=== PATIENT | female | born 1935 | race Caucasian/White ===

== ENCOUNTER → 2017-05-10 | Outpatient (CLI) | payer MEDICARE ==
[~2017-05-10] MED LIST: ALE10 PO; ALE70 PO; ALEN70TA43 PO; ANTI1CAP PO; ASPI-1471 PO; BENZ200C15 PO; CALC-649 PO; CALC-901 PO; DIPH0.5D12 IM; FOSAMAX; GLUC-198 PO; HYDR-385 PO; I CAPS; LOR5 PO; MOM PO; MULT-1319 PO; ONDA-2 PO; OXYC-854 PO; OXYGENHOME INH; PANT40TA65 PO; PER PO; POLY17PO25 PO; SIMV-42 PO; SIMV-49 PO
--- NOTE | 2017-05-10 09:53 | RADIOLOGY IMAGING REPORT ---
[place]AC[place] [facility] [place]IENT NAME: Marissa Pelayo : 1935 MR: [id number] V: [id number] EXAM DATE: ORDERING PHYSICIAN: CLARIBEL LEE TECHNOLOGIST: Location: [facility] - [place] Patient: Marissa Pelayo : 1935 Visit/Account:[id number] Date of Sevice: 05/10/2017 DEXA Scan Clinical history: Post artificial menopausal syndrome. Comparison: DEXA scan from 04/18/2015. LUMBAR SPINE: The bone mineral density (BMD) measured from L1-L4 correlates with a Z-score of 0.8 and a T-score of -0.9 which is Normal as defined by the World Health Organization. The corresponding risk of fracture in the lumbar spine is 1-2 times increased compared with a young adult reference population. This v alue has decrease by one % since the prior study. More than 5% change is considered significant. HIP: Bone mineral density (BMD) measured in the LEFT total hip region correlates with a Z-score 0.9 and a T-score of -1.2 which is osteopenia as defined by the World Health Organization. The corresponding r isk of fracture in the hip is 2-3 times increased compared to a young adult reference population. Thi s value has decreased by 6.6 % since the prior study. More than 5% change is considered significant. T score left femoral neck -1.8 Bone mineral density (BMD) measured in the Femoral Neck region measures 0.784 g/cm?. IMPRESSION: 1. Lumbar spine: Normal. There has been 1% decrease in the bone mineral density since the previous exam. 2. Left Total Hip: Osteopenia. There has been 6.6% decrease in the bone mineral density since the p revious exam. 3. Femoral Neck: Bone Mineral Density is 0.784 g/cm? The next DEXA scan of this patient should include the following sites: L1-L4 and the left hip. FRAX? WHO Fracture Risk Assessment Tool link: <http://www.shef.ac.uk/FRAX/tool.jsp?locationValue=9> PLEASE NOTE: 1) The World Health Organization defines low BMD as follows: T-score Normal > -1 Osteopenia < -1 and > -2.5 Osteoporosis < -2.5 without fractures Established osteoporosis < -2.5 with fractures 2) In general, you may wish to consider: Diagnosis Treatment Follow-up DEXA Normal BMD Prevention 2-3 years Osteopenia Prevention/therapy 1-2 years Osteoporosis Therapy Yearly 3) Fracture risk estimated from the T-score is more accurate for vertebral fractures (often spontane ous) than for hip fractures. Report Dictated By: Kylah Escobar MD at 05/10/2017 9:47 AM Report E-Signed By: Kylah Escobar MD at 05/10/2017 9:49 AM WSN:[email or web address]
--- NOTE | 2017-05-13 09:42 | RADIOLOGY IMAGING REPORT ---
FACILITY: [facility] - [place] PATIENT NAME: SUSI GODINEZ : [id number] MR: [id number] V: [id number] EXAM DATE: [id number] ORDERING PHYSICIAN: CLARIBEL LEE TECHNOLOGIST: Marlen Shelton PROCEDURE:BILATERAL DIGITAL SCREENING MAMMOGRAM WITH CAD ASSISTED INTERPRETATION AND 3D BREAST TOMOSYNTHESIS. COMPARISON:Prior mammograms dated 04/30/16, 04/19/15, 04/29/14, 04/17/13, 04/16/12 and 04/12/11. INDICATIONS:SCREENING FINDINGS: A small amount of fibroglandular tissue is seen throughout the breasts. The parenchymal pattern has remained stable when allowing for difference in mammographic technique and patient positioning. There is no evidence of malignant appearing mass, malignant appearing calcification or other secondary sign of malignancy in either breast. DIAGNOSTIC CATEGORY 1--NEGATIVE. RECOMMENDATIONS: ROUTINE MAMMOGRAM AND CLINICAL EVALUATION. IMPRESSION: Bi-RADS 1: No significant abnormality is seen. Images were reviewed with R2CAD and 3D breast tomosynthesis. Dictated by: Kylah Escobar M.D. on 05/10/2017 at 15:03 Transcribed by: CHANG on 05/12/2017 at 14:53 Approved by: Kylah Escobar M.D. on 05/13/2017 at 9:41 [facility]
== END ==
LOC: MAMO 01:42
PROVIDERS: ATTEND Internal Medicine
DX: Z13.820 Encounter for screening for osteoporosis (principal); Z12.31 Encounter for screening mammogram for malignant neoplasm of breast; M85.88 Other specified disorders of bone density and structure, other site; N95.8 Other specified menopausal and perimenopausal disorders
CPT/HCPCS: 77063; 77067; 77080

== ENCOUNTER → 2018-05-16 | Outpatient (CLI) | payer MEDICARE ==
[~2018-05-16] MED LIST changes: +PNEU0.5D3 IM
--- NOTE | 2018-05-16 10:09 | RADIOLOGY IMAGING REPORT ---
FACILITY: [facility] PATIENT NAME: SUSI GODINEZ : [id number] MR: [id number] V: [id number] EXAM DATE: ORDERING PHYSICIAN: CLARIBEL LEE TECHNOLOGIST: Kajal Rowe PROCEDURE:BILATERAL DIGITAL SCREENING MAMMOGRAM WITH CAD ASSISTED INTERPRETATION & 3D TOMOSYNTHESIS COMPARISON:Prior mammograms 05/10/17, 04/30/16, 04/18/15, 04/29/14, 04/17/13, 04/16/12. INDICATIONS:SCREENING FINDINGS: Scattered fibroglandular densities are seen throughout the breasts. The parenchymal pattern has remained stable allowing for difference in mammographic technique & patient positioning. DIAGNOSTIC CATEGORY 1--NEGATIVE. RECOMMENDATIONS: ROUTINE MAMMOGRAM AND CLINICAL EVALUATION. IMPRESSION: BIRADS 1: Negative. No significant abnormality is seen. Dictated by: Kylah Escobar M.D. on 05/16/2018 at 8:59 Transcribed by: DALIA on 05/16/2018 at 9:35 Approved by: Kylah Escobar M.D. on 05/16/2018 at 10:08 [facility]
== END ==
LOC: MAMO 00:47
PROVIDERS: ATTEND Internal Medicine
DX: Z12.31 Encounter for screening mammogram for malignant neoplasm of breast (principal)
CPT/HCPCS: 77063; 77067

== ENCOUNTER → 2018-06-12 | Outpatient (CLI) | payer MEDICARE ==
[2018-06-12 15:24] LABS: PLATELET COUNT, AUTOMATED 325 K/uL (150-450)
--- NOTE | 2018-06-12 15:56 | RADIOLOGY IMAGING REPORT ---
FACILITY: [facility] PATIENT NAME: Marissa Pelayo : 1935 MR: [id number] V: [id number] EXAM DATE: ORDERING PHYSICIAN: QUIQUE KENNEDY TECHNOLOGIST: Location: [facility] Patient: Marissa Pelayo : 1935 Visit/Account:[id number] Date of Sevice: 06/12/2018 Exam type: ACUTE ABDOMEN SERIES 3 VIEW History: Constipation Comparison: Two view chest February 15, 2014. Findings: Supine and upright views the abdomen reveal a moderate amount of fecal material throughout colon whic h can be seen with constipation. The bowel gas pattern is otherwise nonspecific. Incidentally noted is a very large hiatal hernia with air-fluid level. There is no free air beneath hemidiaphragms. T here is a dextro convex scoliosis lumbar spine with spondylotic changes. PA view the chest reveals no evidence of acute pulmonary consolidation pleural effusions or pulmonary edema. The cardiac swelling is normal in size. Postsurgical changes of the shoulders are present IMPRESSION: Moderate amount of fecal material seen throughout colon which can be seen with constipation Large hiatal hernia Results were called to QUIQUE KENNEDY at 06/12/2018 3:52 PM. Report Dictated By: Kylah Escobar MD at 06/12/2018 3:46 PM Report E-Signed By: Kylah Escobar MD at 06/12/2018 3:52 PM WSN:[email or web address]
== END ==
LOC: LAB 15:06
PROVIDERS: ATTEND Emergency Medicine
DX: K44.9 Diaphragmatic hernia without obstruction or gangrene (principal)
CPT/HCPCS: 36415; 74022; 82040; 82247; 82310; 82374; 82435; 82565; 82947; 84075; 84132; 84155; 84295; 84450; 84460; 84520; 85025

== ENCOUNTER 2018-08-01 00:27 | Day surgery (SDC) | payer MEDICARE ==
[~2018-08-01] VITALS: Ht 165.1 cm; Wt 66.2 kg
[2018-08-01] VITALS (7 sets, daily range): BP systolic 82–138; BP diastolic 47–94
[~2018-08-01 00:27] MED LIST changes: +CALC-852 PO; -DIPH0.5D12 IM; +DIPH0.5S2 IM; +VIT-9 PO
[2018-08-01] MEDS ORDERED: MIDAZOLAM 2 MG/2 ML VIAL IVP PRN (09:00)
[2018-08-01] MEDS ORDERED: LIDOCAINE/SOD BICARB 8.4% SYR ID ONE (09:00)
[2018-08-01] MEDS ORDERED: NORMOSOL R SOLN(*) 1000 ML BAG 1,000 ML IV PRN (09:00)
[2018-08-01] MEDS ORDERED: KETAMINE HCL 500 MG/10 ML VIAL ONE ×2 (10:51)
--- NOTE | 2018-08-01 11:33 | Short(Outpt) Discharge Summary ---
Discharge Summary Reason for Hosp/Final Diag: (1) Hiatal hernia Status: Chronic Hospital Course & Plan: pt presented for egd and colonoscopy. she tolerated the procedures well. she will be discharged home when criteria met. Departure Discharge to: Home Discharge Instructions Home Meds Active Scripts Simvastatin (SIMVASTATIN) 20 Mg Tablet, 1 TAB PO HS, #90 TAB 3 Refills Prov:CLARIBEL LEE MD 05/22/18 Reported Medications Calcium Carbonate/Vitamin D3 (CALCIUM + VITAMIN D TABLET) 1 Each Tablet, 1 EACH PO BID Calcium 600mg Vit D 400iu 07/30/18 Vit A/Vit C/Vit E/Zinc/Copper (PRESERVISION AREDS TABLET) 1 Each Tablet, 1 TAB PO BID 07/25/18 Oxygen (OXYGEN) Inha, 2 L INH HS, L 05/05/15 Glucosa Bueno 2KCL/Chondroitin Bueno (GLUCOSAMINE & CHONDROITIN CAP) 1 Each Capsule, 1 CAP PO BID 04/22/14 Aspirin (ASPIR 81) 81 Mg Tablet.dr, 1 TAB PO QDAY 02/05/14 Multivitamins (Multi-Vitamin) 1 Tab Tablet, 1 TAB PO DAILY 04/14/08 Discontinued Reported Medications Calcium Citrate/Vitamin D3 (CALCIUM CITRATE - VIT D CAPLET) 1 Each Tablet, 1 TAB PO BID 05/05/15 Antiox#10/Om3/Dha/Epa/Lut/Zeax (I-CAPS WITH LUTEIN-OMEGA 3 SFG) 1 Each Capsule, 1 CAP PO BID, CAPSULE 04/22/14 Discontinued Scripts Pantoprazole Sodium (PANTOPRAZOLE SODIUM) 40 Mg Tablet., 1 TAB PO QDAY, #90 TAB.SR 4 Refills Prov:CLARIBEL LEE MD 03/18/17 Diet: Regular Activity: As Tolerated Special Instructions: we will call you in 10 days with biopsy results. CARRIE VILLA Aug 01, 2018 11:33
--- NOTE | 2018-08-01 13:24 | NUR ---
1122- PT. RECEIVED FROM OR VIA STRETCHER WITH THE SIDERAILS UP. SBAR RECEIVED FROM DR. BELLO AND JACOBY FERNANDEZ. 1130- PT. HAS A LOT OF SECRETIONS SO TISSUES PROVIDED FOR NOSE BLOWING AND PT. MOUTH SUCTIONED. PT. STATES THAT SHE IS VERY LIGHTHEADED. 1140- PT. GIVEN HOT TEA AND APPLESAUCE. PT. RETURNED TO ROOM AIR. 1150- PT. STATES THAT LIGHTHEADEDNESS IS GETTING BETTER. 1215- PT. GIVEN PUDDING AND DAISY CRACKERS. 1235- BAR GIVEN TO AZUCENA FERNANDEZ.
== END 2018-08-01 13:40 | disposition home or self-care (01) ==
LOC: OR 00:27
PROVIDERS: ATTEND Surgery
DX: Z12.11 Encounter for screening for malignant neoplasm of colon (principal); K44.9 Diaphragmatic hernia without obstruction or gangrene; K25.9 Gastric ulcer, unspecified as acute or chronic, without hemorrhage or perforation; K20.9 Esophagitis, unspecified; K63.5 Polyp of colon
CPT/HCPCS: 88305; 88313

== ENCOUNTER → 2018-09-17 | Outpatient (CLI) | payer MEDICARE ==
[2018-09-17 13:56] LABS: PLATELET COUNT, AUTOMATED 306 K/uL (150-450)
== END ==
LOC: LAB 13:35
PROVIDERS: ATTEND Family Medicine
DX: Z01.818 Encounter for other preprocedural examination (principal); E78.00 Pure hypercholesterolemia, unspecified
CPT/HCPCS: 36415; 82040; 82247; 82310; 82374; 82435; 82565; 82947; 84075; 84132; 84155; 84295; 84450; 84460; 84520; 85025

== ENCOUNTER → 2018-09-22 | Outpatient (CLI) | payer MEDICARE ==
[~2018-09-22] MED LIST changes: +ASPI81TA94 PO
== END ==
LOC: US 01:09
PROVIDERS: ATTEND Family Medicine
DX: I07.1 Rheumatic tricuspid insufficiency (principal); I35.1 Nonrheumatic aortic (valve) insufficiency; I51.7 Cardiomegaly
CPT/HCPCS: 93306

== ENCOUNTER 2018-09-30 00:26 | Observation (INO) | payer MEDICARE ==
[~2018-09-30] VITALS: Ht 165.1 cm; Wt 65.8 kg
[2018-09-30] VITALS (14 sets, daily range): BP systolic 108–151; BP diastolic 53–89
[2018-09-30] MEDS: NORMOSOL R SOLN(*) 1000 ML BAG 1,000 ML IV PRN ×2 (06:03→13:00)
[2018-09-30] MEDS ORDERED: ceFAZolin(*) 2GM/D5W 50ML 50 ML IVPB ONE (06:30)
[2018-09-30] MEDS ORDERED: LIDOCAINE/SOD BICARB 8.4% SYR ID ONE (06:30)
[2018-09-30] MEDS ORDERED: MIDAZOLAM 2 MG/2 ML VIAL IVP PRN (06:30)
[2018-09-30] MEDS ORDERED: FAMOTIDINE 20 MG TAB PO ONE (06:30)
[2018-09-30] MEDS ORDERED: BUPIVACAINE/EPI 0.5% 50ML VIAL INFIL ONE (06:35)
[2018-09-30] MEDS ORDERED: fentaNYL CITR 100 MCG/2 ML AMP ONE ×2 (06:52→11:11)
[2018-09-30] MEDS ORDERED: DEXAMETHASONE SOD 4 MG/ML VIAL ONE (06:55)
[2018-09-30] MEDS ORDERED: LIDOCAINE MPF 1% 5 ML VIAL ONE (06:55)
[2018-09-30] MEDS ORDERED: ONDANSETRON 4 MG/2 ML VIAL ONE (06:55)
[2018-09-30] MEDS ORDERED: PROPOFOL EMUL(*) 10MG/ML 20 ML 20 ML ONE (06:55)
[2018-09-30] MEDS ORDERED: KETAMINE HCL 200 MG/20 ML MDV ONE (06:56)
[2018-09-30] MEDS ORDERED: SUGAMMADEX SOD 200 MG/2 ML SDV ONE (07:00)
[2018-09-30] MEDS ORDERED: PREGABALIN 75 MG CAPSULE PO ONE (07:11)
[2018-09-30] MEDS ORDERED: [UNRECOGNIZED DRUG - OTHER] ONE (07:30)
[2018-09-30] MEDS ORDERED: ACETAMINOPHEN(*)1000 MG/100 ML 100 ML IVPB ONE (07:30)
[2018-09-30] MEDS ORDERED: ePHEDrine 25 MG/5 ML DISP.SYR IVP ONE (07:31)
[2018-09-30] MEDS ORDERED: KETOROLAC 30 MG/ML VIAL ONE (10:00)
[2018-09-30] MEDS ORDERED: ESMOLOL 10 MG/ML 10ML SDV ONE (10:25)
--- NOTE | 2018-09-30 12:00 | NUR ---
Received patient from PACU at 1148, pt anxious and complaining of vertigo like symptoms, dizziness which worsens with movement and light sensitivity. lights turned off in room, shade lowered to allow for maximum darkness, towel also placed over pt eyes. pt vital signs stable, complaints of pain in left shoulder and abdomen, shoulder worse than abdomen, pt declines to rate pain on 0-10 scale, states "its not a 10" pt declines pain medication at this time. patient educated to let RN know if pain worses or if pt needs intervention for pain. pt agrees. patients spouse brought to room, pt repositioned on right side with pillow support.
--- NOTE | 2018-09-30 12:30 | NUR ---
THIS RN ASSESSED PATIENT AT THIS TIME, VITAL SIGNS STABLE, PATIENT RESTING WITH EYES CLOSED, STATES PAIN IS BETTER NOW, REQUESTS ICE CHIPS. DR VILLA NOTIFIED OF VERTIGO SYMPTOMS AND NEED FOR INPATIENT ORDERS. CLARIFIED WITH COAL GASIFICATION TECHNICIAN, LEANDRA THAT PATIENT IS OK TO RECEIVE CLEAR LIQUIDS. DR VILLA NOTIFIED THIS RN VIA WILLIAM IN OR THAT PATIENT MAY HAVE TRAMADOL 50MG PO FOR PAIN IF NEEDED IN STEP DOWN.
--- NOTE | 2018-09-30 13:30 | NUR ---
pt complaining of back pain due to position, vital signs stable, pt assisted to sit at edge of bed which pt states did help pain in back, declines need for any other pain intervention. Pt has slight dizziness sitting, but able to tolerate position and does open eyes occasionally. pt requests warm water gargle to help with flegm in back of throat which was provided, warm chicken broth also provided. pt requests to continue to sit at edge of bed. call light in reach and spouse at bedside.
[2018-09-30] MEDS ORDERED: ONDANSETRON 4 MG ODT TABDP SL PRN (14:05)
--- NOTE | 2018-09-30 14:20 | NUR ---
PATIENT SITTING AT EDGE OF BED, VITAL SIGNS STABLE, PT TOLERATING CHICKEN BROTH, NO NAUSEA, STILL HAVING MILD VERTIGO SYMPTOMS, DIZZINESS, BUT ABLE TO OPEN EYES AND TURN HEAD SIDE TO SIDE. PT COMPLAINS OF MILD PAIN IN RIGHT UPPER QUADRANT/SIDE OF ABDOMEN, ICE PACK APPLIED, PT DENIES NEED FOR PAIN INTERVENTION AT THIS TIME, SPOUSE AT BEDSIDE. NO INPATIENT BED AVAILABLE AT THIS TIME, PATIENT AND SPOUSE UPDATED, REASSURED.
--- NOTE | 2018-09-30 14:48 | Post Operative Progress Note ---
Post Operative Progress Note Date: Sep 30, 2018 Time: 14:40 Surgeon: dr. mindi diaz #[id number] It Engineer: dr. renato agudelo Anesthesia: gen, local dr. villafuerte Pre-Op Diagnosis: hiatal hernia Post-Op Diagnosis: same Findings: large hiatal hernia Procedure(s): lap hiatal hernia repair and toupet fundoplication Complications: none Fluids: iv crystalloid Estimated Blood Loss: minimal Date OP Note Dictated: Sep 30, 2018 Time OP Note Dictated: 14:41 CARRIE DIAZ Sep 30, 2018 14:48
--- NOTE | 2018-09-30 15:20 | NUR ---
PT TRANSFERRED TO INPATIENT BED VIA WHEELCHAIR PER PATIENT REQUEST, VITAL SIGNS STABLE AT TIME OF AMBULATION, PT DENIED ANY DIZZINESS OR SYMPTOMS DURING AMBULATION. AT TIME OF ARRIVAL TO INPATIENT BED, PATIENT AMBULATED TO ALTERNATE SIDE OF BED WITHOUT DIFFICULTY. HANDOFF COMPLETE TO RN.
--- NOTE | 2018-09-30 15:39 | OPERATIVE REPORT 1 ---
EVENT DATE: September 30, 2018 SURGEON: Kurtis Cassidy MD ANESTHESIOLOGIST: Satnam Esparza MD ANESTHESIA: General and local. INFORMATION SYSTEMS AUDIT MANAGER: Rudolph Friedman MD PREOPERATIVE DIAGNOSIS Hiatal hernia. POSTOPERATIVE DIAGNOSIS Hiatal hernia. PROCEDURE PERFORMED Laparoscopic hiatal hernia repair and Toupet fundoplication. FLUIDS IV crystalloids. ESTIMATED BLOOD LOSS Minimal. SPECIMENS None. COMPLICATIONS None. INDICATIONS This is an 83-year old female with a very large hiatal hernia. This was seen on imaging. It was also seen during endoscopy. The patient is unable to eat full meals and she has lost a significant amount of weight due to this. Risks and benefits of the procedure were explained and consent was signed. DESCRIPTION OF PROCEDURE The patient was taken to the operating room and placed in the supine position. General anesthesia was administered per the Anesthesia team. The patient was prepped and draped in normal sterile fashion. Local anesthesia was injected into the dermis below the left costal margin and OptiView technique was used to easily enter the abdomen with a 5 mm port. Pneumoperitoneum was achieved. After injecting local analgesia and under direct vision, another 5 mm left sided port was placed as well as a 12 mm and a 5 mm right sided port. The Tristan liver retractor was then placed under direct vision. The lesser omentum was taken down. This was followed up over the right melissa. I began dissecting the hernia sac from the mediastinum. I then used LigaSure along the greater curvature of the more proximal portion of the stomach. Short gastric vessels were controlled in this fashion and this was taken up over the left melissa. I continued dissecting the mediastinum until the entire hernia sac was reduced. A space was developed posterior to the esophagus. Care was taken to protect the vagus nerves. By the end of the procedure, there was approximately 4 cm of esophagus in the abdomen. Surgitek stitches in a [id number] fashion were used to approximate the hernia defect. I made sure to leave enough room for the esophagus. A Toupet fundoplication was performed using 2-0 silk stitches with the Endo Stitch device. Three of these were placed on each side, securing the fundus to the esophagus. There was no tension pulling the stomach back into the chest. Hemostasis was assured. The wrap had the appropriate orientation. I had previously resected the sac and removed it from the abdomen. Fascia closure device with an 0 Vicryl stitch x2 was used to close the fascia of the large port site. The ports were removed under direct vision and pneumoperitoneum was relieved. The Tristan retractor had been removed under direct vision as well. All skin incisions were closed with 4-0 Monocryl subcuticular stitches. More local analgesia was injected. Appropriate dressings were applied. Patient tolerated the procedure well and there were no complications. JESUS
[2018-10-01 03:24] VITALS: BP 157/80
[2018-10-01 07:34] VITALS: BP 158/68
[2018-10-01] MEDS ORDERED: traMADol 50 MG TAB PO PRN (08:05)
[2018-10-01] MEDS ORDERED: KETOROLAC 15 MG/ML VIAL IVP PRN (08:10)
--- NOTE | 2018-10-01 08:10 | General Surgery Progress Note ---
Subjective Progress Notes Subjective no abd pain but having back pain from bed. eugene liquids. Physical Exam Vital Signs Date Time Temp Pulse Resp B/P (MAP) Pulse Ox O2 Delivery O2 Flow Rate FiO2 10/01/18 07:34 98.1 89 158/68 (98) 93 10/01/18 07:18 Room Air 10/01/18 03:24 16 1.0 Intake and Output 10/01/18 07:01 Intake Total 3000 ml Balance 3000 ml Intake Oral 950 ml IV Total 2050 ml # Voids 2 General Appearance: Alert, Awake Cardiovascular: Other (reg rate) GI: Other (abd soft) Assessment and Plan Problems: (1) Hiatal hernia Status: Chronic Assessment & Plan: 10/01/18: doing fine. no abd pain but back pain. advance diet. pain control. likely home today. Exam Sepsis Risk: No Definite Risk CARRIE VILLA Oct 01, 2018 08:10
[2018-10-01] MEDS ORDERED: ENOXAPARIN 40 MG/0.4ML SYR SC SCH (09:00)
--- NOTE | 2018-10-01 12:35 | Medical Nutrition Therapy ---
Nutrition Anthropometrics Height (Inches): 65.00 Height (Calculated Centimeters: 165.955278 Weight (Pounds): 145 Weight (Calculated Kilograms): 65.771 BMI: 24.1 Hx Weight Loss: Yes (12% wt loss over 1 year ( Usual Body Emripm=555 lbs) Curre nt Weight:145 lbs) Johnathon Nutrition Score: Adequate Johnathon Nutrition Risk Score: 22 Dietary Referral Nutrition Risk Factors: Nutrition Risk Comment: Physical Findings Physical Appearance: Recommend Higher BMI for older adults(25-32) Skin Appearance Skin Appearance: Edema Edema Location Modifier: Edema Location: Type of Edema: Degree of Edema: Gastrointestinal Symptoms GI Symtoms: Bloating Tube Present: Bowel Sounds: Recent Bowel Pattern: Stool Characteristics: Nutrition/Food History Good Nutritional Diagnosis Nutritional Risk Acuity 3: OR & > 80 yrs Past Medical History: Osteopenia,HLD Nutritional Acuity: 3-Mild Energy Requirement: 1437 (MSJ x AF1.3) Protein Requirement: 66 (1g/kg) Fluid Requirement: 1500 Diet Type: Medical Liquid/GI soft Nutrition Intervention: Encourage intake Diet Comment To RSA: Please allow pt to order beneprotein, Boost, Ensure as needed.ARIEL Nutrition Monitoring & Eval Nutrition Goals: Eat 75-100% Meal Nutrition Follow-Up: Fair Intake Nutrition Monitoring: Monitor intake tolerance to diet, weight. RD Patient Assessment Time: [address] Assessment Type: RD Assessment Patient Nutrition Acuity: 3-Mild Follow Up Date: Oct 06, 2018 Nutritional Comment: 10/01/18-Reviewed pt history. Pt admitted of hiatal hernia. Pt has been tolerating medical liquid GI soft diet. Pt did report wt loss of 12% x 1 year (not considered severe). Pt reported usual body weight is ~165 lbs, current wt is 145 lbs. Pt stated wt loss was due to hiatal hernia she couldn't each very much. Given wt loss, malnutrition physical assessment was performed. Pt had some loss of muscle mass at trapezius, pectoralis, temporalis, and interosseous muscles. Did not have loss of fat at tricep skin fold, no apparent/visible ribs to indicate fat loss. Pt does not currently meet criteria for moderate protein calorie malnutrition. Discussed ways to add high protein foods that are soft and easy to digest. Recommended pt add whey protein powder to smoothies, shakes, soups, yogurt to help meet protein requirements given diet limitations. Will continue to monitor tolerance to diet and wt.BLANCHE KRAUS Oct 01, 2018 12:30
[2018-10-01] MEDS ORDERED: TRAM-420 PO (13:14)
--- NOTE | 2018-10-01 13:40 | Hospitalist Depart ---
Discharge Summary Reason for Hosp/Final Diag: (1) Hiatal hernia Status: Chronic Hospital Course & Plan: 10/01/18: doing fine. no abd pain but back pain. advance diet. pain control. likely home today. Departure Weight (Pounds): 145 Condition: Improved Discharge Instructions Home Meds Active Scripts Tramadol Hcl (TRAMADOL HCL) 50 Mg Tablet, 50 MG PO Q6H PRN for PAIN, #14 TAB Prov:CARRIE DIAZ 10/01/18 Reported Medications Calcium Carbonate/Vitamin D3 (CALCIUM + VITAMIN D TABLET) 1 Each Tablet, 1 EACH PO BID Calcium 600mg Vit D 400iu 07/30/18 Vit A/Vit C/Vit E/Zinc/Copper (PRESERVISION AREDS TABLET) 1 Each Tablet, 1 TAB PO BID 07/25/18 Oxygen (OXYGEN) Inha, 2 L INH HS, L 05/05/15 Glucosa Bueno 2KCL/Chondroitin Bueno (GLUCOSAMINE & CHONDROITIN CAP) 1 Each Capsule, 1 CAP PO BID 04/22/14 Multivitamins (Multi-Vitamin) 1 Tab Tablet, 1 TAB PO DAILY 04/14/08 Special Instructions: full liquid diet for 1 wk. ice cream and pudding are ok to eat. then food but no meat or bread for 1 month. f/u dr. mindi diaz 2 wks ([phone]). ok to shower. no lifting more than 15 lbs for 3 wks. Venous Thromboembolism Antithrombotics Is Pt On Any Antithrombotics?: Yes CARRIE DIAZ Oct 01, 2018 13:40
== END 2018-10-01 13:37 | disposition home or self-care (01) ==
LOC: OR 00:26 → MED 15:20
PROVIDERS: ADMIT Surgery; ATTEND Surgery
DX: K44.9 Diaphragmatic hernia without obstruction or gangrene (principal)
CPT/HCPCS: 43280; 96372; A9270; G0378; J0131; J1100; J1650; J1885; J2001; J2405; J2704; J3010; J3490; J0690